=== PATIENT | female | born 1930 | race Caucasian/White ===

== ENCOUNTER → 2018-06-28 | Outpatient (CLI) | payer MEDICARE, OTHER ==
[~2018-06-28] MED LIST: ACET-2043 PO; ACET-2146 PO; ALEN70TA43 PO; ALPR-448 PO; ALPR-459 PO; ASPI-1471 PO; AUG875 PO; BETD15T TOP; BIOT5CAP PO; CA C1TAB11 PO; CHOL10005 PO; CHOL200038 PO; CIPR-214 PO; CIPR-344 PO; CYA1000 PO; DOC100 PO; FAMO10TA7 PO; FLU20 PO; FLUC150T40 PO; FLUO-176 PO; FLUO20TA2 PO; GUAI-545 PO; GUALA600 PO; LEVO50TA80 PO; LEVO50TA86 PO; LOR5/325 PO; METH4TAB66 PO; MOM PO; NAPR220C12 PO; NOR10 PO; NOR25 PO; PNEU0.5D3 IM; PRED1DRO2 OS; RABE20TA33 PO; RANI-318 PO; TRAM-420 PO
[2018-06-28 15:52] LABS: PLATELET COUNT, AUTOMATED 255 K/uL (150-450)
== END ==
LOC: LAB 15:18
PROVIDERS: ATTEND Family Medicine
DX: E53.8 Deficiency of other specified B group vitamins (principal); E03.9 Hypothyroidism, unspecified
CPT/HCPCS: 36415; 82040; 82247; 82310; 82374; 82435; 82565; 82607; 82947; 84075; 84132; 84155; 84295; 84443; 84450; 84460; 84520; 85025

== ENCOUNTER → 2019-03-22 | Outpatient (CLI) | payer MEDICARE, OTHER ==
[~2019-03-22] MED LIST changes: +DOXY-181 PO; +LEVO25TA61 PO
== END ==
LOC: LAB 16:51
PROVIDERS: ATTEND Family Medicine
DX: L02.91 Cutaneous abscess, unspecified (principal); B95.61 Methicillin susceptible Staphylococcus aureus infection as the cause of diseases classified elsewhere
CPT/HCPCS: 87070; 87077; 87186